=== PATIENT | female | born 1955 | race African-American/Black ===

== ENCOUNTER 2023-12-14 06:26 | Emergency (ER) | payer OTHER ==
[2023-12-14 06:36] VITALS: BP 139/77; PULSE 90; RESP 20; TEMP 98.3; BMI 23.9
[2023-12-14] MEDS ORDERED: ACETAMINOPHEN INJECTION 100 ML IVPB ONE (08:00)
[2023-12-14] MEDS ORDERED: ONDANSETRON *ODT* 4 MG TABLET ONE (08:00)
[2023-12-14] MEDS: LACTATED RINGERS SOLUTION 1000 ML INFUS.BAG IV ONE (08:26)
[2023-12-14] MEDS: ACETAMINOPHEN 1000 MG/100 ML BAG IVPB ONE (08:26)
[2023-12-14] MEDS: ONDANSETRON *ODT* 4 MG TABLET SL ONE (08:27)
[2023-12-14 08:33] LABS: EOS % 1.1 % (0-4.5); HEMATOCRIT 36.4 % (32.4-45.2); HEMOGLOBIN 12.1 GM/dL (10.7-15.3); LYMPH % 30.6 % (8-40); MCH 27.4 pg (25.7-33.7); MCHC 33.1 g/dl (32.0-36.0); MEAN CELL VOLUME 82.8 fl (80-96); MEAN PLT VOLUME 8.4 fl (7.5-11.1); MONO % 9.8 % (3.8-10.2); NEUT % 57.5 % (42.8-82.8); PLATELET COUNT 189 10^3/uL (134-434); RDW 13.5 % (11.6-15.6); WHITE BLOOD COUNT 4.7 K/mm3 (4.0-10.0)
[2023-12-14 08:44] LABS: ALBUMIN 3.8 g/dl (3.4-5.0); BLOOD UREA NITROGEN 14.8 mg/dL (7-18); CALCIUM 8.9 mg/dL (8.5-10.1)
[2023-12-14 08:47] LABS: CREATININE 0.7 mg/dL (0.55-1.3)
[2023-12-14 08:49] LABS: BILIRUBIN,TOTAL 0.9 mg/dL (0.2-1); TOT PROT 6.9 g/dl (6.4-8.2)
[2023-12-14 10:49] LABS: URINE APPEARANCE CLEAR; URINE BILIRUBIN NEGATIVE (NEGATIVE); URINE COLOR YELLOW; URINE GLUCOSE (UA) 3+ (NEGATIVE); URINE KETONE NEGATIVE (NEGATIVE); URINE LEUK ESTERASE NEGATIVE (NEGATIVE); URINE NITRITE NEGATIVE (NEGATIVE); URINE PROTEIN NEGATIVE (NEGATIVE); URINE UROBILINOGEN 0.2 mg/dL (0.2-1.0)
== END 2023-12-14 12:33 | disposition home or self-care (01) ==
LOC: JER 06:26
PROC: 3E033NZ Introduction of Analgesics, Hypnotics, Sedatives into Peripheral Vein, Percutaneous Approach (ICD-10-PCS; principal; 2023-12-14)
DX: R19.7 Diarrhea, unspecified (principal); R42 Dizziness and giddiness; R10.823 Right lower quadrant rebound abdominal tenderness; R11.0 Nausea; Z20.822 Contact with and (suspected) exposure to COVID-19
CPT/HCPCS: 0241U-QW; 36415; 74177-TC; 80053; 81003; 83735; 84439; 84443; 84484; 85025; 87077; 87086; 93005; 93010; 99285-25; J0131; Q0162; Q9967

== ENCOUNTER 2024-06-10 04:45 | Emergency (ER) | payer OTHER ==
[2024-06-10 04:49] VITALS: BP 168/92; PULSE 102; RESP 16; TEMP 97.8; BMI 24.4
[2024-06-10] MEDS ORDERED: ACETAMINOPHEN 325 MG TABLET (FP) ONE (05:08)
[2024-06-10] MEDS: ACETAMINOPHEN 500 MG TABLET (FP) PO ONE (05:11)
[2024-06-10 05:26] LABS: BASO % 0.9 % (0-2.0); EOS % 2.8 % (0-4.5); HEMATOCRIT 38.1 % (32.4-45.2); HEMOGLOBIN 12.8 GM/dL (10.7-15.3); LYMPH % 24.3 % (8-40); MCH 27.7 pg (25.7-33.7); MCHC 33.7 g/dl (32.0-36.0); MEAN CELL VOLUME 82.2 fl (80-96); MEAN PLT VOLUME 8.3 fl (7.5-11.1); MONO % 9.3 % (3.8-10.2); NEUT % 62.7 % (42.8-82.8); PLATELET COUNT 191 10^3/uL (134-434); RBC 4.63 M/mm3 (3.60-5.2); RDW 12.9 % (11.6-15.6); WHITE BLOOD COUNT 5.8 K/mm3 (4.0-10.0)
[2024-06-10 05:33] LABS: INR 0.89 (0.83-1.09); PROTHROMBIN TIME (PATIENT) 10.1 SEC (9.7-13.0)
[2024-06-10 05:36] LABS: ACTIVATED PTT 30.6 SECONDS (25.2-36.5)
[2024-06-10 06:05] LABS: ALBUMIN 4.3 g/dl (3.4-5.0); BLOOD UREA NITROGEN 20.3 mg/dL (7-18); CALCIUM 9.3 mg/dL (8.5-10.1)
[2024-06-10 06:08] LABS: CREATININE 1.1 mg/dL (0.55-1.3)
[2024-06-10] MEDS ORDERED: POTASSIUM CHLORIDE ORAL LIQUID 20 MEQ/15 ML ONE (06:09)
[2024-06-10 06:10] LABS: BILIRUBIN,TOTAL 0.9 mg/dL (0.2-1); TOT PROT 7.1 g/dl (6.4-8.2)
[2024-06-10] MEDS: POTASSIUM CHLORIDE ORAL LIQUID 20 MEQ/15 ML PO ONE (06:21)
== END 2024-06-10 10:26 | disposition home or self-care (01) ==
LOC: JER 04:45
DX: R07.89 Other chest pain (principal); R06.02 Shortness of breath; R00.2 Palpitations; R10.13 Epigastric pain; R19.7 Diarrhea, unspecified
CPT/HCPCS: 36415; 71045-TC-FY; 80053; 84443; 84484; 85025; 85610; 85730; 93005; 93010; 99285-25